=== PATIENT | male | born 2000 | race Caucasian/White ===

== ENCOUNTER 2021-10-31 22:05 | Emergency (ER) | payer SELFPAY ==
--- NOTE | ~2021-10-31 | CT_ITS ---
EXAMINATION: CT brain wo con DATE: 10/31/2021 22:58 INDICATION: Left facial numbness. TECHNIQUE: Computed tomography (CT) of the head was performed without intravenous contrast. The mA wa s adjusted according to patient size. Iterative reconstruction technique was employed. The dose-lengt h product was 681.00 mGy-cm. COMPARISON: None FINDINGS: There is no intracranial hemorrhage, acute infarction, or abnormal intracranial mass lesion . The ventricles are normal in size. There is mild mucosal thickening in the paranasal sinuses. The m astoid air cells are normal. IMPRESSION: 1. Normal brain. Reviewed, dictated and finalized at location E. [facility]KE IMPRESSION: 1. Normal brain.
[2021-10-31 22:11] VITALS: BP 151/93; PULSE 91; RESP 16; TEMP 37; O2SAT 100
[2021-10-31 23:15] VITALS: BP 135/72; PULSE 72; RESP 21; O2SAT 99
[2021-10-31] MEDS: predniSONE 20 MG TABLET 60 MG PO (23:16)
[2021-10-31] MEDS: valACYclovir HCL 500 MG TABLET 1000 MG PO (23:31)
--- NOTE | 2021-10-31 23:34 | ED.GENADULT ---
HPI - General Adult General Chief complaint: Neuro Symptoms/Deficit Stated complaint: left side of my face isn't moving quite right Time Seen by Provider: 10/31/21 22:41 History of Present Illness HPI narrative: 21-year-old male presented [facility] for evaluation of some left facial weakness. Patient states that the symptoms started yesterday and have progressively today. Patient denies any other numbness or weakness. Related Data Allergies Allergy/AdvReac Type Severity Reaction Status Date / Time No Known Allergies Allergy Verified 10/31/21 22:15 Review of Systems Review of Systems: CONSTITUTIONAL: Denies fever, chills, or sweats. EYES: Denies visual changes, redness, or discharge. ENT: Denies rhinorrhea, congestion, sore throat, or otalgia. CARDIOVASCULAR: Denies chest pain, palpitations, or edema. RESPIRATORY: Denies cough or dyspnea. GASTROINTESTINAL: Denies abdominal pain, nausea, vomiting, or diarrhea. GENITOURINARY: Denies dysuria or hematuria. SKIN: Denies rash or itching. MUSCULOSKELETAL: Denies back pain, joint pain, or myalgia. NEUROLOGIC: Left-sided facial weakness. No other focal numbness or weakness. PSYCHIATRIC: Denies anxiety or depression. All systems reviewed & are unremarkable except as noted in HPI and below Exam Narrative: APPEARANCE: Well appearing, no pain, no distress, well-nourished. HEAD: normocephalic, atraumatic. EYES: PERRLA/EOMI, conjunctivae clear. Difficulty closing left eye with blinking NOSE: Normal no drainage EARS:TMS clear with good light reflex. THROAT: Pharynx clear, no exudate. NECK: Supple. No adenopathy, no masses. RESPIRATORY: Airway patent, respirations nonlabored. Clear to auscultation bilaterally, no rales, rhonchi, wheezing. CARDIOVASCULAR: Regular rate and rhythm without murmurs rubs or gallops. ABDOMINAL: Soft, nontender, nondistended, normal bowel sounds MUSCULOSKELETAL: Moves all extremities. Strength/ROM intact, No edema, No calf tenderness. NEURO: Left-sided facial droop involving forehead. Otherwise normal neuro exam. SKIN: Warm, dry. Normal Color PSYCHIATRIC: Normal affect/mood. Course Course Emergency Course: Head CT was negative. 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 Patient was started on prednisone and valacyclovir. Patient was also educated on eye care to prevent corneal abrasion. Patient was given information for primary care physician and for follow-up with neurology. Patient is also inquiring about referred on antidepressants. Patient was offered to be evaluated by the crisis counselor but declined. Patient was provided a sheet with counselors. Patient was comfortable with the plan for discharge and close follow-up. All questions and concerns were addressed. Vital Signs Vital signs: Vital Signs Temperature 98.6 F 10/31/21 22:11 Pulse Rate 91 10/31/21 22:11 Respiratory Rate 16 10/31/21 22:11 Blood Pressure 151/93 H 10/31/21 22:11 Pulse Oximetry 100 10/31/21 22:11 Temperature 98.6 F 10/31/21 22:11 Pulse Rate 72 10/31/21 23:15 Respiratory Rate 21 H 10/31/21 23:15 Blood Pressure 135/72 10/31/21 23:15 Pulse Oximetry 99 10/31/21 23:15 Medical Decision Making Vital Signs Vital Signs: Vital Signs Temperature 98.6 F 10/31/21 22:11 Pulse Rate 91 10/31/21 22:11 Respiratory Rate 16 10/31/21 22:11 Blood Pressure 151/93 H 10/31/21 22:11 Pulse Oximetry 100 10/31/21 22:11 Temperature 98.6 F 10/31/21 22:11 Pulse Rate 72 10/31/21 23:15 Respiratory Rate 21 H 10/31/21 23:15 Blood Pressure 135/72 10/31/21 23:15 Pulse Oximetry 99 10/31/21 23:15 Imaging Data Radiologist's impression: Impressions Head CT 10/31/21 22:59 IMPRESSION: 1. Normal brain. Discharge Plan Discharge Clinical Impression: Booker's palsy Patient Disposition: Home, Self-Care Condition: Stable Instructions: Antibiotic Form, Booker Palsy (ED) Additional Instructions: Have
[2021-10-31] MEDS: ARTIFICIAL TEARS OPHTH SOLN 15 ML BOTTLE 1 DROP EACH EYE (23:46)
== END 2021-10-31 23:54 | disposition home or self-care (01) ==
PROVIDERS: Emergency Provider Emergency Medicine
DX: G51.0 Bell's palsy (principal)
CPT/HCPCS: 70450; 99284; A9270; J7512